=== PATIENT | male | born 1975 | race Caucasian/White ===

== ENCOUNTER 2016-06-24 05:58 | Inpatient (IN) | payer MEDICARE ==
[2016-06-24] VITALS (11 sets, daily range): BP systolic 132–180; BP diastolic 72–97; Ht 185.4 cm; Wt 215.9 kg
[~2016-06-24] VITALS: Ht 185.4 cm; Wt 215.9 kg
[~2016-06-24 05:58] MED LIST: BUPRENORPHIN-N1 EACH SL; COMBIVENT RESPIM4 GM INH; DILANTIN100 MG PO; DIOVAN HCT 160/1 TAB PO; EPIPEN0.3 MG/0.3 IM; LEVOTHYROXINE50 MCG PO; NAPROSYN500 MG PO; NEXIUM20 MG PO; PHENERGAN25 M1 PO; PROAIR HFA8.5 GM INH; PROBENECID-COL1 EACH PO; SEROQUEL300 MG PO; SYMBICORT 16010.2 GM INH; TESTOSTERON200 MG/ML IM; TRAZODONE HCL50 MG PO; VRAYLAR 3 MG PO; XANAX1 MG PO; ZANTAC300 MG PO; ZOLOFT100 MG PO
[2016-06-24 07:01] LABS: HEMATOCRIT 38.8 % (42.0-54.0); HEMOGLOBIN 12.9 g/dL (13.5-17.5); MCH 28.5 pg (26.0-34.0); MCHC 33.2 g/dL (31.0-37.0); MCV 85.8 fL (80.0-100.0); MEAN PLATELET VOLUME 10.7 fL (7.4-10.4); RBC 4.52 10x6/uL (4.20-6.10); RDW 12.9 % (11.5-14.5); WBC 5.5 10x3/uL (4.8-10.8)
[2016-06-24 07:16] LABS: ANION GAP 13.6 mmol/L (8-16); CALCIUM 9.5 mg/dL (8.5-10.1); CARBON DIOXIDE 29.6 mmol/L (21.0-32.0); CREATININE - SERUM 1.3 mg/dL (0.6-1.3); POTASSIUM - SERUM 4.2 mmol/L (3.5-5.1)
--- NOTE | 2016-06-24 11:13 | NUR ---
DR WHITE AT BEDSIDE ASSESING THE PATIENTS PAIN. PT TO BE DISCHARGED FROM .
--- NOTE | 2016-06-24 11:23 | NUR ---
DR DOHERTY NOW AT BEDSIDE. DR DOHERTY ADVISED OF BP AND ADMINISTERED KETAMINE. KETAMINE DOCUMENTED ON GREEN SHEET BY DR DOHERTY
--- NOTE | 2016-06-24 11:54 | NUR ---
PATIENT REQUESTING A FAN. CALLED [employer] AND ASKED FOR A FAN. THE LADY I SPOKE WITH SAID "I WILL SEE WHAT I CAN FIND."
--- NOTE | 2016-06-24 12:10 | NUR ---
PATIENT IS HAVING CHEST PAIN. STATED HE FEELS LIKE SOMEONE IS SITTING ON HIS CHEST. CALLED . PUT IN ORDERS. RT AMINA IS AT THE BEDSIDE NOW FOR EKG. PATIENT IS ALERT AND ORIENTED X'S 4. PATIENT IS ON 2L VIA NASAL CANNULA. PATIENT STATED HE IS FEELING SHORT OF BREATH. OXYGEN SATURATION IS 100%. RESPIRATIONS ARE EVEN AND UNLABORED. FAMILY IS IN ROOM.
--- NOTE | 2016-06-24 13:06 | NUR ---
PATIENT IS NOW CALM. STATED HIS PAIN IS STILL THERE BUT FEELING BETTER. PATIENT STATED HE OCCASIONALLY HAS SEIZURES. SET UP SUCTION AT THE BEDSIDE, AND PADDED BED RAILS.
[2016-06-24 13:55] LABS: CKMB 5.5 U/L (0.0-3.6); CREATINE KINASE 184 UL (21-232)
[2016-06-24 13:56] LABS: TROPONIN-I < 0.017 ng/mL (0.000-0.060)
[2016-06-24 19:27] LABS: CREATINE KINASE 217 UL (21-232); TROPONIN-I < 0.017 ng/mL (0.000-0.060)
--- NOTE | 2016-06-24 20:00 | NUR ---
ASESSMENT PER FLOWSHEET. MONITORING PO WATER INTAKE 30 ML Q30MIN. IV PATENT RT FOREARM OF LR INFUSING AT 150CC'S/HR SITE CLEAR. MANAGER CLINICAL APPLICATIONS OF DILAUDID IN USE WITH SETTINGS AT 1MG Q10MIN WITH 9MG Q4H L/O. ETCO2 MONITOR IN USE. UP WITH HELPTO BR VOIDED X1. LAP SITES TO ABDOMEN X7 WITH 4X4 DRESSING TO SITE ABOVE NAVEL AREA C/D/I. O2 ON 2L/M PER NC NO DISTRESS. SCD'S ON. SR UP X2 CALL LIGHT WITHIN REACH.
--- NOTE | 2016-06-24 21:15 | NUR ---
MEDS GIVEN PER JUL. WITH 30 ML WATER.
--- NOTE | 2016-06-24 21:23 | NUR ---
INSTRUCTED PT WILL NEED TO WALK IN THE HALLWAY THIS PM.
--- NOTE | 2016-06-24 22:59 | NUR ---
EYES CLOSED RESPIRATIONS WITH EASE AND UNLABORED.
--- NOTE | 2016-06-24 23:45 | NUR ---
AWAKE UP WITH HELP TO BR VOIDS. AMBULATED IN HALLWAY ONE LAP AROUND NURSES' STATION.
--- NOTE | 2016-06-25 01:24 | NUR ---
AWAKE UP WITH STANDBY ASSIST TO BR VOIDS ON COMMODE. AMBULATED IN HALLWAY X 200 FEET OR ONE LAP. TOLERATED WELL. ASSISTED BACK TO BED. SR UP X2 CALL LIGHT WITHIN REACH.
[2016-06-25 01:30] VITALS: BP 146/63
[2016-06-25 02:13] LABS: CKMB 1.6 U/L (0.0-3.6); CREATINE KINASE 189 UL (21-232)
[2016-06-25 02:31] LABS: TROPONIN-I < 0.017 ng/mL (0.000-0.060)
--- NOTE | 2016-06-25 04:18 | NUR ---
AWAKE UP TO BR VOIDS AMBULATED IN HALLWAY 3RD TIME TONIGHT. TOLERATED WELL.
[2016-06-25 05:00] VITALS: BP 152/65
--- NOTE | 2016-06-25 06:22 | NUR ---
UP TO BR VOIDS ASSISTED BACK TO BED MEDS GIVEN PER JUL.
[2016-06-25 07:12] LABS: BASOPHILS 0.3 % (0.0-2.0); EOSINOPHILS 0.3 % (0-7); HEMATOCRIT 36.8 % (42.0-54.0); HEMOGLOBIN 12.4 g/dL (13.5-17.5); IMMATURE GRANULOCYTES 0.4 % (0-5); LYMPHOCYTES 17.7 % (15-50); MCH 28.6 pg (26.0-34.0); MCHC 33.7 g/dL (31.0-37.0); MEAN PLATELET VOLUME 11.2 fL (7.4-10.4); MONOCYTES 12.4 % (2-11); NEUTROPHILS 68.9 % (40-80); PLATELET COUNT 233 10x3/uL (130-400); RBC 4.33 10x6/uL (4.20-6.10); RDW 13.3 % (11.5-14.5)
[2016-06-25 07:34] LABS: CALC OSMOLALITY 282 mosm/kg (275-300); CALCIUM 8.5 mg/dL (8.5-10.1); CARBON DIOXIDE 26.1 mmol/L (21.0-32.0); CHLORIDE - SERUM 103 mmol/L (98-107); CREATININE - SERUM 1.1 mg/dL (0.6-1.3); GLUCOSE 117 mg/dL (74-106); MAGNESIUM - SERUM 1.7 mg/dL (1.8-2.4); POTASSIUM - SERUM 4.4 mmol/L (3.5-5.1); SODIUM 140 mmol/L (136-145); UREA NITROGEN 20 mg/dL (7-18); eGFR NON AFRICAN AMERICAN 79 mL/min (90-120)
[2016-06-25 07:57] VITALS: BP 148/79
--- NOTE | 2016-06-25 08:23 | OP ---
PATIENT NAME: PORTER NAVA JR MEDICAL RECORD: [id number] :79 LOCATION:D.[facility] ADMISSION DATE:06/24/16 SURGEON: HAIR LIVE MD DATE OF OPERATION: 06/24/2016 SURGEON: Hair Live MD. PREOPERATIVE DIAGNOSES: 1. Morbid obesity. 2. Chronic obstructive pulmonary disease. 3. Obstructive sleep apnea. 4. Hypertension. 5. Epilepsy. POSTOPERATIVE DIAGNOSES: 1. Morbid obesity. 2. Chronic obstructive pulmonary disease. 3. Obstructive sleep apnea. 4. Hypertension. 5. Epilepsy. PROCEDURE PERFORMED: Laparoscopic vertical sleeve gastrectomy. ANESTHESIA: General. COMPLICATIONS: None. SPECIMENS: Partial gastrectomy. Case was clean contaminated. ESTIMATED BLOOD LOSS: 30 cc. OPERATIVE COURSE: After consent was obtained, the patient was taken to the operating room and placed in the supine position on the operating table. Next, general anesthesia was given via endotracheal intubation after a timeout was performed that confirmed the correct patient and procedure. Next, the abdomen was prepped and draped in typical sterile fashion. Local anesthetic was injected just above the umbilicus. A stab incision was made with 11-blade scalpel. Using a 10-mm bladeless optical trocar, the abdomen was entered under direct laparoscopic vision. Adequate pneumoperitoneum was achieved. The abdominal cavity was inspected. No evidence of bowel injury. No evidence of bleeding. The patient was then placed in a steep reverse Trendelenburg position. All trocar sites were infiltrated with local anesthetic. A Kike retractor was placed in the subxiphoid position elevating the left lobe of the liver and exposing the gastroesophageal junction. A 12-mm trocar was then placed into the right lateral quadrant. A 5-mm trocar was placed in the right lower quadrant. Two 5-mm trocars were placed in the left lateral quadrant. At this time, the pylorus was identified. Starting approximately 6 cm from the pylorus, the short gastric vessels were taken along the length of the greater curvature all the way to the level of the left crura with the Harmonic scalpel. Once this was done, the stomach was mobilized. The left crura was skeletonized. Next, the 40-Welsh ViSiGi device was passed transorally into the stomach. It was advanced to the pylorus, placed along the lesser curvature of the stomach and placed to suction. Next, the sleeve gastrectomy was created using the OPERATIVE REPORT [id number] BRANDYNICOTIN REYEZ JR Ethicon powered linear cutting stapler with curiel loads. The loads were fired along the length of the ViSiGi device. A total of 6 firings were used to create the sleeve gastrectomy. The partial gastrectomy specimen was then placed in the left pericolic gutter. The suture line was imbricated using a 2-0 Stratafix suture. Once the suture line was oversewn, the ViSiGi device was pulled back into the antrum. A bowel clamp was placed across the duodenum. The upper abdomen was filled with saline. The ViSiGi device was used to insufflate the stomach. A leak test was performed. There was no evidence of leak. At this time, the stomach was suctioned and the ViSiGi device was removed from the stomach. All remaining irrigant was suctioned from the abdomen. The abdominal cavity was inspected. There was no evidence of bowel injury. No evidence of bleeding. Next, the partial gastrectomy specimen was grasped and removed through the 12-mm trocar site and sent for permanent pathology. Next, the Kike liver retractor was removed. Next, the 5 mm scope was inserted. The 10-mm trocar site and 12-mm trocar site were closed in direct laparoscopic vision with 0 Vicryl suture and a Aristides-Gloria suture passer. At this time, all remaining instruments were removed. The abdomen was desufflated. Trocars were removed. Skin was closed with 4-0 Monocryl, Mastisol and Steri-Strips. At the end of the case, all needle and instrument counts were correct. No complications occurred. The patient extubated and transferred to the PACU in stable condition. TRANSINT:[id number] Voice Confirmation ID: [id number] DOCUMENT ID: [id number] HAIR LIVE MD at 0823 CC: [id number] DICTATION DATE: 06/24/161029 LOG TRUCK DRIVER: 06/24/16 1825 ADM IN [id number] [place] [address]
--- NOTE | 2016-06-25 08:30 | NUR ---
VS NEW ORDERS R/N AT PRESENT.
--- NOTE | 2016-06-25 09:00 | NUR ---
MEDS GIVEN VICENTE WELL AT PRESENT N/C.
--- NOTE | 2016-06-25 10:00 | NUR ---
QUIET IN ROOM AT PRESENT AT PRESENT.
--- NOTE | 2016-06-25 11:28 | NUR ---
Patient Name: PORTER NAVA Admission Status: Elective Accout number: [id number] Admission Date: 06-24-2016 : 1975 Admission Diagnosis: Attending: MORIS Current LOS: 1 Anticipated DC Date: 06-29-2016 Planned Disposition: Home Primary Insurance: MEDICARE A & B Discharge Planning Comments: CM MET WITH PATIENT WITH D/C NEEDS AND PLANS. PATIENT STATED HE LIVES ALONE AND HAS 3 STEPS W/O RAILS TO ENTER HOME AND NO STAIRS INSIDE. PATIENT STATED HE IS INDEPENDENT WITH HIS CARE AND HAS NO DME AT HOME. PATIENTS PCP IS DR. BATEMAN AND HE USES [facility] IS [place]. PATIENT DENIES NEED FOR HOME HEALTH AT THIS TIME. CM WILL CONTINUE TO FOLLOW PATIENT WITH D/C NEEDS AND PLANS. PCP DR. BATEMAN [facility] ([place]) EDGAR LEIJA) [phone] Delivery Architect: Wanda Pérez Is the patient Alert and Oriented? Yes 0 * How many steps to enter\exit or inside your home? 3 W/O RAIL 0 * PCP FRANSICO 0 * Pharmacy [facility] IN [place] 0 * Preadmission Environment Home Alone 0 * ADLs Independent 0 * Equipment None 0 * List name and contact numbers for known caregivers / representatives who currently or will assist patient after discharge: EDGAR LEIJA) [phone] 0 * Community resources currently utilized None 0 * Additional services required to return to the preadmission environment? Yes 0 * Can the patient safely return to the preadmission environment? Yes 0 * Has this patient been hospitalized within the prior 30 days at any hospital? No 0 Grand Total: 0
--- NOTE | 2016-06-25 11:30 | NUR ---
AMB TO BATHROOM BM NOTED QUIET N/C VOICED.
--- NOTE | 2016-06-25 12:14 | NUR ---
NUTRITION MONITORING & EVAL SPOKE WITH PT RE: DIET INSTRUCTIONS FOR GASTRIC SLEEVE. REVIEWED DIET PROGRESSION AND PORTIONS. RD FOLLOWING
[2016-06-25 12:35] VITALS: BP 168/82
--- NOTE | 2016-06-25 12:37 | NUR ---
QUIET IN ROOM AT PRESENT DENIES ANY NEEDS CONT TO C/O PAIN AT PRESENT.
--- NOTE | 2016-06-25 14:20 | NUR ---
QUIET IN ROOM AT PRESENT DENIES ANY NEEDS AT PRESENT.
[2016-06-25] MEDS ORDERED: DILAUDID2 MG PO (14:45)
[2016-06-25 15:31] VITALS: BP 175/88
--- NOTE | 2016-06-25 15:57 | NUR ---
IV DCD CATH INTACT SITE CLEAN AND DRY WITHOUT REDDNESS OR EDEMA NOTED AT PRESENT.DISCHARGE INSTRUCTIONS GONE OVER WITH PT DEMONSTRATES UNDERSTANDING AT PRESENT.RX GIVEN TO PT ALSO AT PRESENT.
--- NOTE | 2016-06-25 16:20 | NUR ---
LEFT VIA W/C DISCHARGE INSTRUCTIONS GONE OVER WITH PT LEFT VIA W/C AT PRESENT.
--- NOTE | 2016-08-07 09:40 | OP ---
PATIENT NAME: PORTER NAVA JR MEDICAL RECORD: [id number] :[birth year] LOCATION:D.MS [facility]2224 ADMISSION DATE:06/24/16 SURGEON: ISIDRO GARBER MD DATE OF OPERATION: 06/24/2016 ASSISTANCE NOTE: I assisted Dr. Roberts with laparoscopic gastric sleeve resection for morbid obesity. I scrubbed in as the trocars and retractor had been placed. My involvement in the operation including manipulation of tissues. Retraction of tissues. Assistance with positioning of the linear cutting stapler. Irrigation and aspiration. Assistance with oversewing the suture line. Assistance with retrieval of the gastrectomy specimen as well as closure of a few of the skin incisions and running the camera for most of the case. TRANSINT:[id number] Voice Confirmation ID: [id number] DOCUMENT ID: [id number] ISIDRO GARBER MD at 0940 CC: [id number] DICTATION DATE: 06/24/16 1610 SUPERVISOR CARTON AND [employer] SUPPLY: 06/24/162002 DIS IN 06/25/16 [facility] [address] [place] [address]
== END 2016-06-25 16:22 | disposition home or self-care (01) | DRG 982 ==
LOC: D.SDCHOLD 05:58 → D.MS 05:58 → D.SDCHOLD 08:00 → D.MS 11:43
PROVIDERS: Anesthesiology; ADMIT Surgery
PROC: 0DB64Z3 Excision of Stomach, Percutaneous Endoscopic Approach, Vertical (ICD-10-PCS; principal; 2016-06-24 08:00)
DX: E66.2 Morbid (severe) obesity with alveolar hypoventilation (principal); Z68.44 Body mass index [BMI] 60.0-69.9, adult; J44.9 Chronic obstructive pulmonary disease, unspecified; I10 Essential (primary) hypertension; G40.909 Epilepsy, unspecified, not intractable, without status epilepticus

== ENCOUNTER → 2017-06-28 09:50 | Outpatient (CLI) | payer MEDICARE ==
[2016-06-24 15:33] VITALS: BMI 62.8
[~2017-06-28 09:50] MED LIST changes: +DILAUDID2 MG PO
== END | disposition home or self-care (01) ==
LOC: D.RAD 06-18 08:30
DX: E66.01 Morbid (severe) obesity due to excess calories (principal)

== ENCOUNTER 2017-11-01 19:32 | Inpatient (IN) | payer MEDICARE ==
[~2017-11-01] VITALS: Ht 185.4 cm; Wt 211.5 kg
--- NOTE | ~2017-11-01 | HP ---
PATIENT: PORTER NAVA JR MEDICAL RECORD: [id number] ACCOUNT: [id number] LOCATION:[facility] D.2301 : [birth year] ADMISSION DATE: 11/01/17 HISTORY AND PHYSICAL EXAMINATION HISTORY OF PRESENT ILLNESS: This 42-year-old white male was admitted to the hospital ICU for evaluation of difficult pneumonia and sepsis. The patient was seen in an outlying facility, transferred to the ER. ER evaluated the patient and admitted him for appropriate intervention. The patient went to the local emergency room for evaluation of cough and congestion that had been present for almost 2 weeks. He had been having shortness of breath and sweating for the last 24 hours. He was evaluated and found to have evidence of a left mid and left lower chest density, had extremely elevated white count. Antibiotics were initiated, and the patient was transferred for pulmonary evaluation. PAST MEDICAL HISTORY: Significant for morbid obesity, seizures, hypertension, coronary artery disease, asthma, sleep apnea, history of a GI bleed, constipation, depression, anxiety, PTSD. PAST SURGICAL HISTORY: Includes bilateral knee arthroscopic surgery. He also had an appendectomy. He also had a gastric sleeve that was performed. ALLERGIES: The patient has no known drug allergies. MEDICATIONS: Do include Suboxone for chronic pain, Xanax for PTSD, Nexium for GERD, Dilantin for seizures, Zoloft for depression, Seroquel for depression, and Symbicort for asthma. SOCIAL HISTORY: The patient is a former smoker. He is not smoking now. No alcohol use. No recreational drug use. REVIEW OF SYSTEMS: Indicates fever, chills, back pain, no hematuria, night sweats, generalized achiness, and wheezing. PHYSICAL EXAMINATION: VITAL SIGNS: At the time of history and physical as below. GENERAL: He is an ill-appearing, morbidly obese 42-year-old white male that is in the ICU, diaphoretic, that has a harsh cough. HEENT: His pupils are equal, round and reactive to light. Extraocular movements are intact. Oral cavity and oropharynx otherwise clear. NECK: No cervical or pharyngeal adenopathy. No nuchal rigidity. LUNGS: Have rhonchi heard in the left side with expiratory wheezes. HEART: Regular rate and rhythm with a I/ systolic ejection murmur. ABDOMEN: Soft, nontender, obese. Positive bowel sounds. No hepatosplenomegaly or masses. EXTREMITIES: No edema is noted. NEUROLOGIC: He is able to move all 4 extremities. LABORATORY DATA: On visualization of his lab from outlying source shows a white count of 35,000, H&H of 15 and 47, platelets of 136. He does have an elevated lactate. The patient's potassium is mildly elevated at 5, but at the high end of normal. CO2 of 20. Chest x-ray shows left lower lobe and left middle lobe pneumonia. The patient has been afebrile in the last 24 hours. Has slightly elevated troponin. HISTORY AND PHYSICAL [id number] PORTER NAVA JR PLAN: The patient will be started on Merrem and Levaquin. Pulmonary consultation will be obtained with Dr. Jean. We will check x-ray and laboratory appropriately. TRANSINT:[id number] Voice Confirmation ID: [id number] DOCUMENT ID: [id number] JACQUES STOLL MD at 0949 CC: [id number] DICTATION DATE: 11/02/17 112 HEALTH IT SPECIALIST: 11/02/17 1309 ADM IN [facility] [address] [place] [address]
--- NOTE | ~2017-11-01 | CN ---
PATIENT NAME:PORTER NAVA JR MEDICAL RECORD: [id number] : 79 LOCATION:[id number] ADMIT DATE: 11/01/17 ACCOUNT: [id number] CONSULTING PHYSICIAN: RICHARD ALMENDAREZ MD REFERRING PHYSICIAN: KRISTINE CAREY MD DATE OF CONSULTATION: 11/02/2017 CONSULT REQUESTING PHYSICIAN: Prabhu Washburn MD REASON FOR CONSULTATION: Left-sided chest pain, possible pneumonia, possible hemothorax. HISTORY OF PRESENT ILLNESS: Mr. Nava is a 42-year-old gentleman, who is morbidly obese. The patient having a fall on the left side 2 weeks ago and he is hurting on the left side when he is taking a deep breathing, but there were no significant shortness of breath. Since yesterday, the patient has worsening shortness of breath. He is also having some chills. The patient came into the ER and evaluation found out that he has a huge infiltrate on the left lower lobe and lingular region. He denies any swelling and pain in the lower extremities. REVIEW OF SYSTEMS: Mainly in the history of present illness. PAST MEDICAL HISTORY: 1. Morbid obesity. 2. Obstructive sleep apnea. 3. Seizure disorder. 4. Hypertension. 5. Coronary artery disease. 6. Anxiety and depression. 7. PTSD. PAST SURGICAL HISTORY: 1. He had bilateral arthroscopic knee surgery. 2. He had a bariatric surgery. 3. Appendectomy. ALLERGIES: There are no known drug allergies. MEDICATIONS: On Crosswisetech is reviewed. PERSONAL AND SOCIAL HISTORY: The patient is an ex-smoker. He quit it more than 1-1/2 years ago. He smoked for 20 years. He is nondrinker. FAMILY HISTORY: Noncontributory. PHYSICAL EXAMINATION: GENERAL: Now, the patient is lying comfortably in bed. He is not in acute distress. VITAL SIGNS: The blood pressure is 139/79, pulse is 70, respirations 14, temperature 98.6, SpO2 is 97% on 2 liters nasal cannula. HEENT: Conjunctivae are pink. Sclerae are not icteric. NECK: Supple, no JVD. CHEST: There is absent breath sounds on the left. There is dullness on percussion. The right side is clear. HEART: Rhythm regular, normal sound, no murmur. CONSULT REPORT [id number] PORTER NAVA ABDOMEN: Soft, bowel sounds present. No hepatosplenomegaly. RECTAL: Deferred. EXTREMITIES: No cyanosis, no clubbing, no pedal edema. SKIN: Warm, normal turgor. CENTRAL NERVOUS SYSTEM: The patient is awake and alert. There are no obvious cranial nerve abnormality. The gait was not tested. LABORATORY DATA: CBC: The WBC is 28.7, hemoglobin 13.5, hematocrit 40.2, the platelet count is 667. Chemistry: Sodium 131, potassium is 5, BUN is 22, creatinine 1.3. IMPRESSION: 1. Acute hypoxic respiratory failure. 2. Large right-sided pleural effusion. 3. Possible multilobar pneumonia. 4. Left-sided pleuritic type of chest pain after a fall. 5. Leukocytosis. 6. Obstructive sleep apnea. 7. Morbid obesity. RECOMMENDATION: 1. Continue meropenem and Levaquin. I will add vancomycin to cover for MRSA. 2. Check the CT scan with contrast after discussion with the radiologist. 3. Consult Dr. Clifton. 4. Follow up labs and chest radiograph. Dr. Washburn, thank you for involving me in the care of Mr. Nava. CRITICAL CARE TIME: 45 minutes. TRANSINT:[id number] Voice Confirmation ID: [id number] DOCUMENT ID: [id number] RICHARD ALMENDAREZ MD at 1218 CC: [id number] DICTATION DATE: 11/02/17 1435 SODA MAKER: 11/02/17 1506 ADM IN [address] [place] [address]
--- NOTE | ~2017-11-01 | OP ---
PATIENT NAME: PORTER NAVA JR MEDICAL RECORD: [id number] :79 LOCATION:D.[facility] D.2305 ADMISSION DATE:11/01/17 SURGEON: MARCELINO MOREAU MD DATE OF OPERATION: 11/05/2017 SURGEON: Marcelino Moreau MD MILL ATTENDANT: KENZIE Horton OPERATION PERFORMED: 1. Left video-assisted thoracoscopic surgery. 2. Left thoracotomy. 3. Total decortication. 4. Bronchoscopy. PREOPERATIVE DIAGNOSIS: Empyema. POSTOPERATIVE DIAGNOSES: Empyema and abscess. ANESTHESIA: General endotracheal anesthesia, aborted Epidural. COMPLICATIONS: None. SPECIMENS: 1. Pleural fluid for culture, AFB, fungal and cytology. 2. Pleural peel. 3. Abscess cavity. 4. Culture of abscess fluid. BLOOD LOSS: 50 cc. CONDITION: Stable. DISPOSITION: ICU. OPERATIVE FINDINGS: 1. Thoracoscopy in the mid axillary line. After removal of 1700 cc of seropurulent fluid revealed a well walled off space, but unable to free the lung enough to make an anterior working port, converted to open thoracotomy at this site. 2. Dense pleuritic adhesions over the lower lobe and lingula. 3. Creamy white pus in the pleural space posterior to the superior segment of the lower lobe. 4. Good reexpansion. 5. Bronchoscopy with no endobronchial lesions and a small amount of blood in the right main stem bronchus and upper lobe that appeared to have rundown from above. OPERATIVE INDICATION: Pleuritic pain, leukocytosis, and empyema. DESCRIPTION OF PROCEDURE: The patient was brought to the operating suite and after some difficulty, double lumen endotracheal tube placed with good position confirmed by bronchoscopy, then turned to the right lateral decubitus position with appropriate padding including an axillary roll. The chest was sterilely prepped and draped. The scope was inserted through a small opening with OPERATIVE REPORT [id number] PORTER NAVA JR findings as above converted to thoracotomy. The lower lobe was completely freed. Lingula was freed all the way to the apex with direct visualization. All of the visceral pleura was freed. Parietal pleura was then freed. Cultures were taken as above. Chest tubes were placed, one posteriorly and one directed to the apex. Thorough irrigation was undertaken. The lung was reexpanded. The wound was closed with muscle layer, subcutaneous layers and skin clips. The patient was placed in a supine position. Tube changed. Bronchoscopy performed. Thorough irrigation. Then to ICU in stable condition. TRANSINT:[id number] Voice Confirmation ID: [id number] DOCUMENT ID: [id number] MARCELINO MOREAU MD at 1005 CC: RICHARD ALMENDAREZ MD and KRISTINE CAREY MD [id number] DICTATION DATE: 11/05/17 1230 HEARING SCREEN COORDINATOR: 11/05/17 1306 ADM IN [id number] [place] [address]
[2017-11-01] MEDS ORDERED: BUPRENORPHIN-N1 EACH SL (19:38)
[2017-11-01] MEDS ORDERED: NEXIUM20 MG PO (21:54)
[2017-11-01 22:00] VITALS: BP 131/73; BP 140/79
[2017-11-01] MEDS ORDERED: FISH OIL 1,0001 CA1 PO (22:01)
[2017-11-01 22:07] LABS: CKMB 0.7 U/L (0.0-3.6); CREATINE KINASE 79 UL (21-232)
[2017-11-01 22:08] LABS: TROPONIN-I < 0.017 ng/mL (0.000-0.060)
[2017-11-01 22:59] VITALS: BP 140/79; BMI 56.6
[2017-11-01 23:00] VITALS: BP 151/75
[2017-11-02] VITALS (22 sets, daily range): BP systolic 128–168; BP diastolic 72–100; Ht 185.4 cm; Wt 211.5 kg
[2017-11-02 02:30] LABS: APPEARANCE HAZY (CLEAR); COLOR AMBER (YELLOW)
[2017-11-02 02:31] LABS: BILIRUBIN NEGATIVE (NEGATIVE); GLUCOSE NEGATIVE (NEGATIVE); KETONE NEGATIVE (NEGATIVE); NITRITE NEGATIVE (NEGATIVE); PROTEIN 1+ mg/dL (NEGATIVE)
[2017-11-02 02:32] LABS: BACTERIA MODERATE /hpf (NONE SEEN); EPITHELIAL CELLS 0-5 /hpf (0-5); GRANULAR CAST 0-5 /lpf (NONE SEEN); MUCUS <1+ /lpf (NONE SEEN); RED CELLS - URINE 0-5 /hpf (0-5); WHITE CELLS - URINE 0-5 /hpf (0-5)
[2017-11-02 03:57] LABS: BASOPHILS 0.1 % (0-2); EOSINOPHILS 0.1 % (0-7); HEMATOCRIT 40.2 % (42.0-54.0); HEMOGLOBIN 13.5 g/dL (13.5-17.5); IMMATURE GRANULOCYTES 0.6 % (0-5); LYMPHOCYTES 7.7 % (15-50); MCHC 33.6 g/dL (31.0-37.0); MCV 83.4 fL (80.0-100.0); MEAN PLATELET VOLUME 10.9 fL (7.4-10.4); MONOCYTES 12.7 % (2-11); NEUTROPHILS 78.8 % (40-80); PLATELET COUNT 667 10x3/uL (130-400); RBC 4.82 10x6/uL (4.20-6.10); RDW 12.8 % (11.5-14.5); WBC 28.7 10x3/uL (4.8-10.8)
[2017-11-02 04:01] LABS: ALBUMIN 2.6 g/dL (3.4-5.0); ANION GAP 17.4 mmol/L (8-16); BILIRUBIN - TOTAL 1.22 mg/dL (0.2-1.3); CALCIUM 9.1 mg/dL (8.5-10.1); CARBON DIOXIDE 22.6 mmol/L (21.0-32.0); CREATININE - SERUM 1.3 mg/dL (0.6-1.3); PROTEIN - SERUM 6.8 g/dL (6.4-8.2)
[2017-11-02] MEDS ORDERED: CLONAZEPAM2 MG/TAB PO ×2 (23:17→23:18)
[2017-11-03] VITALS (16 sets, daily range): BP systolic 111–169; BP diastolic 68–123
[2017-11-03 06:18] LABS: HEMATOCRIT 34.6 % (42.0-54.0); HEMOGLOBIN 11.4 g/dL (13.5-17.5); MCH 28.1 pg (26.0-34.0); MCHC 32.9 g/dL (31.0-37.0); MCV 85.2 fL (80.0-100.0); MEAN PLATELET VOLUME 10.8 fL (7.4-10.4); PLATELET COUNT 455 10x3/uL (130-400); RBC 4.06 10x6/uL (4.20-6.10); WBC 20.2 10x3/uL (4.8-10.8)
[2017-11-03 06:24] LABS: INR 1.57 (0.85-1.17); PROTIME 18.2 SECONDS (11.6-15.0)
[2017-11-03 06:41] LABS: ALBUMIN 2.2 g/dL (3.4-5.0); ALKALINE PHOSPHATASE 105 U/L (46-116); BILIRUBIN - TOTAL 0.73 mg/dL (0.2-1.3); CALC OSMOLALITY 265 mosm/kg (275-300); CALCIUM 9.1 mg/dL (8.5-10.1); CARBON DIOXIDE 24.1 mmol/L (21.0-32.0); CHLORIDE - SERUM 95 mmol/L (98-107); CKMB 1.2 U/L (0.0-3.6); CREATINE KINASE 112 UL (21-232); CREATININE - SERUM 1.1 mg/dL (0.6-1.3); GLUCOSE 122 mg/dL (74-106); MAGNESIUM - SERUM 1.9 mg/dL (1.8-2.4); PHOSPHOROUS 2.7 mg/dL (2.5-4.9); PRO BNP 267 pg/mL (0-125); PROTEIN - SERUM 7.3 g/dL (6.4-8.2); SODIUM 131 mmol/L (136-145); THYROID STIMULATING HORMONE 3.41 uIU/mL (0.36-3.74); UREA NITROGEN 17 mg/dL (7-18); eGFR NON AFRICAN AMERICAN 79 mL/min (90-120)
[2017-11-03 06:42] LABS: ALT (SGPT) 16 U/L (10-68); POTASSIUM - SERUM 4.1 mmol/L (3.5-5.1); TROPONIN-I < 0.017 ng/mL (0.000-0.060)
[2017-11-03 08:23] LABS: ANISOCYTOSIS OCC; LYMPHOCYTES 19 % (15-50); MONOCYTES 9 % (2-11); NEUTROPHILS 65 % (40-80); PLATELET ESTIMATE INCREASED
[2017-11-03 15:03] LABS: APPEARANCE CLEAR (CLEAR); COLOR YELLOW (YELLOW)
[2017-11-03 15:04] LABS: BILIRUBIN NEGATIVE (NEGATIVE); GLUCOSE NEGATIVE (NEGATIVE); KETONE MODERATE mg/dL (NEGATIVE); NITRITE NEGATIVE (NEGATIVE); PROTEIN NEGATIVE (NEGATIVE); UROBILINOGEN NORMAL (NORMAL)
[2017-11-04] VITALS (18 sets, daily range): BP systolic 113–184; BP diastolic 62–106
[2017-11-04 04:44] LABS: MCH 27.6 pg (26.0-34.0); MCHC 32.7 g/dL (31.0-37.0); MCV 84.5 fL (80.0-100.0); MEAN PLATELET VOLUME 10.6 fL (7.4-10.4); WBC 15.6 10x3/uL (4.8-10.8)
[2017-11-04 04:57] LABS: HEMATOCRIT 27.2 % (42.0-54.0); HEMOGLOBIN 8.9 g/dL (13.5-17.5); RBC 3.22 10x6/uL (4.20-6.10)
[2017-11-04 05:02] LABS: INR 1.63 (0.85-1.17); PROTIME 18.8 SECONDS (11.6-15.0)
[2017-11-04 05:03] LABS: APTT 56.6 SECONDS (22.8-39.4)
[2017-11-04 05:04] LABS: ALBUMIN 1.9 g/dL (3.4-5.0); ALKALINE PHOSPHATASE 92 U/L (46-116); ALT (SGPT) 15 U/L (10-68); BILIRUBIN - TOTAL 1.29 mg/dL (0.2-1.3); CALCIUM 7.5 mg/dL (8.5-10.1); CARBON DIOXIDE 22.3 mmol/L (21.0-32.0); CHLORIDE - SERUM 102 mmol/L (98-107); GLUCOSE 101 mg/dL (74-106); PROTEIN - SERUM 6.1 g/dL (6.4-8.2); SODIUM 137 mmol/L (136-145); eGFR NON AFRICAN AMERICAN 88 mL/min (90-120)
[2017-11-04 05:07] LABS: CALC OSMOLALITY 272 mosm/kg (275-300); POTASSIUM - SERUM 3.3 mmol/L (3.5-5.1); UREA NITROGEN 9 mg/dL (7-18)
[2017-11-04 14:27] LABS: PROTIME 15.6 SECONDS (11.6-15.0)
[2017-11-04 14:34] LABS: APTT 43.3 SECONDS (22.8-39.4); INR 1.29 (0.85-1.17)
[2017-11-04 21:09] LABS: INR 1.28 (0.85-1.17); PROTIME 15.5 SECONDS (11.6-15.0)
[2017-11-04 21:10] LABS: APTT 47.1 SECONDS (22.8-39.4)
[2017-11-05] VITALS (23 sets, daily range): BP systolic 125–172; BP diastolic 64–97
[2017-11-05 04:02] LABS: BASOPHILS 0.2 % (0-2); HEMATOCRIT 31.5 % (42.0-54.0); HEMOGLOBIN 10.2 g/dL (13.5-17.5); IMMATURE GRANULOCYTES 1.2 % (0-5); LYMPHOCYTES 8.9 % (15-50); MCH 27.6 pg (26.0-34.0); MCHC 32.4 g/dL (31.0-37.0); MCV 85.4 fL (80.0-100.0); MEAN PLATELET VOLUME 10.8 fL (7.4-10.4); MONOCYTES 13.1 % (2-11); NEUTROPHILS 75.6 % (40-80); PLATELET COUNT 431 10x3/uL (130-400); RBC 3.69 10x6/uL (4.20-6.10); RDW 13.3 % (11.5-14.5); WBC 17.5 10x3/uL (4.8-10.8)
[2017-11-05 04:24] LABS: ALBUMIN 2.2 g/dL (3.4-5.0); ALKALINE PHOSPHATASE 145 U/L (46-116); BILIRUBIN - TOTAL 1.38 mg/dL (0.2-1.3); CALC OSMOLALITY 270 mosm/kg (275-300); CARBON DIOXIDE 24.7 mmol/L (21.0-32.0); CHLORIDE - SERUM 97 mmol/L (98-107); CREATININE - SERUM 0.9 mg/dL (0.6-1.3); GLUCOSE 115 mg/dL (74-106); INR 1.32 (0.85-1.17); POTASSIUM - SERUM 3.5 mmol/L (3.5-5.1); PROTEIN - SERUM 7.1 g/dL (6.4-8.2); PROTIME 15.9 SECONDS (11.6-15.0); SODIUM 136 mmol/L (136-145); UREA NITROGEN 8 mg/dL (7-18); eGFR NON AFRICAN AMERICAN > 90 mL/min (90-120)
[2017-11-05 04:30] LABS: ALT (SGPT) 30 U/L (10-68)
[2017-11-05 12:45] LABS: INR 1.42 (0.85-1.17); PROTIME 16.9 SECONDS (11.6-15.0)
[2017-11-05 12:50] LABS: CALC OSMOLALITY 276 mosm/kg (275-300); CALCIUM 8.6 mg/dL (8.5-10.1); CARBON DIOXIDE 28.1 mmol/L (21.0-32.0); CHLORIDE - SERUM 99 mmol/L (98-107); GLUCOSE 130 mg/dL (74-106); POTASSIUM - SERUM 3.8 mmol/L (3.5-5.1); SODIUM 138 mmol/L (136-145); eGFR NON AFRICAN AMERICAN 88 mL/min (90-120)
[2017-11-05 12:51] LABS: BASOPHILS 0.3 % (0-2); EOSINOPHILS 0.4 % (0-7); HEMATOCRIT 34.1 % (42.0-54.0); HEMOGLOBIN 11.1 g/dL (13.5-17.5); IMMATURE GRANULOCYTES 3.2 % (0-5); LYMPHOCYTES 7.6 % (15-50); MCH 27.5 pg (26.0-34.0); MCHC 32.6 g/dL (31.0-37.0); MCV 84.6 fL (80.0-100.0); MEAN PLATELET VOLUME 10.3 fL (7.4-10.4); NEUTROPHILS 77.5 % (40-80); PLATELET COUNT 546 10x3/uL (130-400); RBC 4.03 10x6/uL (4.20-6.10); RDW 13.3 % (11.5-14.5); WBC 21.6 10x3/uL (4.8-10.8)
[2017-11-05 12:55] LABS: UREA NITROGEN 11 mg/dL (7-18)
[2017-11-06] VITALS (23 sets, daily range): BP systolic 110–169; BP diastolic 65–99
[2017-11-06 04:52] LABS: HEMATOCRIT 33.2 % (42.0-54.0); HEMOGLOBIN 10.9 g/dL (13.5-17.5); MCH 27.5 pg (26.0-34.0); MCHC 32.8 g/dL (31.0-37.0); MCV 83.8 fL (80.0-100.0); MEAN PLATELET VOLUME 10.3 fL (7.4-10.4); RBC 3.96 10x6/uL (4.20-6.10); RDW 13.3 % (11.5-14.5); WBC 17.8 10x3/uL (4.8-10.8)
[2017-11-06 04:58] LABS: INR 1.42 (0.85-1.17); PROTIME 16.9 SECONDS (11.6-15.0)
[2017-11-06 05:15] LABS: ALBUMIN 1.8 g/dL (3.4-5.0); ALKALINE PHOSPHATASE 165 U/L (46-116); BILIRUBIN - TOTAL 0.89 mg/dL (0.2-1.3); CALCIUM 8.5 mg/dL (8.5-10.1); CARBON DIOXIDE 31.6 mmol/L (21.0-32.0); CHLORIDE - SERUM 98 mmol/L (98-107); CREATININE - SERUM 0.8 mg/dL (0.6-1.3); GLUCOSE 129 mg/dL (74-106); POTASSIUM - SERUM 3.3 mmol/L (3.5-5.1); PROTEIN - SERUM 6.3 g/dL (6.4-8.2); SODIUM 137 mmol/L (136-145); eGFR NON AFRICAN AMERICAN > 90 mL/min (90-120)
[2017-11-06 05:24] LABS: ALT (SGPT) 62 U/L (10-68); CALC OSMOLALITY 273 mosm/kg (275-300); UREA NITROGEN 8 mg/dL (7-18)
[2017-11-06 19:08] LABS: AFB SPECIMEN PROCESSING Concentration (())
[2017-11-07] VITALS (23 sets, daily range): BP systolic 135–168; BP diastolic 78–99
[2017-11-07 05:16] LABS: HEMATOCRIT 32.4 % (42.0-54.0); HEMOGLOBIN 10.7 g/dL (13.5-17.5); MCH 27.9 pg (26.0-34.0); MCV 84.6 fL (80.0-100.0); RBC 3.83 10x6/uL (4.20-6.10); RDW 13.5 % (11.5-14.5); WBC 16.9 10x3/uL (4.8-10.8)
[2017-11-07 05:32] LABS: ALBUMIN 1.7 g/dL (3.4-5.0); ALKALINE PHOSPHATASE 152 U/L (46-116); ALT (SGPT) 60 U/L (10-68); BILIRUBIN - TOTAL 0.54 mg/dL (0.2-1.3); CALCIUM 8.2 mg/dL (8.5-10.1); CARBON DIOXIDE 31.2 mmol/L (21.0-32.0); CHLORIDE - SERUM 97 mmol/L (98-107); CREATININE - SERUM 0.9 mg/dL (0.6-1.3); POTASSIUM - SERUM 3.3 mmol/L (3.5-5.1); PROTEIN - SERUM 6.1 g/dL (6.4-8.2); SODIUM 134 mmol/L (136-145); UREA NITROGEN 8 mg/dL (7-18); eGFR NON AFRICAN AMERICAN > 90 mL/min (90-120)
[2017-11-07 05:48] LABS: CALC OSMOLALITY 270 mosm/kg (275-300); GLUCOSE 190 mg/dL (74-106)
[2017-11-08] VITALS (24 sets, daily range): BP systolic 127–172; BP diastolic 74–100
[2017-11-08 04:03] LABS: HEMATOCRIT 31.1 % (42.0-54.0); MCH 27.5 pg (26.0-34.0); MCHC 32.2 g/dL (31.0-37.0); MCV 85.4 fL (80.0-100.0); MEAN PLATELET VOLUME 9.8 fL (7.4-10.4); RBC 3.64 10x6/uL (4.20-6.10); RDW 13.6 % (11.5-14.5); WBC 16.9 10x3/uL (4.8-10.8)
[2017-11-08 04:21] LABS: ALBUMIN 1.7 g/dL (3.4-5.0); ALKALINE PHOSPHATASE 160 U/L (46-116); BILIRUBIN - TOTAL 0.37 mg/dL (0.2-1.3); CALCIUM 8.4 mg/dL (8.5-10.1); CARBON DIOXIDE 31.7 mmol/L (21.0-32.0); CHLORIDE - SERUM 98 mmol/L (98-107); CREATININE - SERUM 0.8 mg/dL (0.6-1.3); POTASSIUM - SERUM 3.5 mmol/L (3.5-5.1); PROTEIN - SERUM 6.2 g/dL (6.4-8.2); SODIUM 136 mmol/L (136-145); UREA NITROGEN 6 mg/dL (7-18); eGFR NON AFRICAN AMERICAN > 90 mL/min (90-120)
[2017-11-08 04:26] LABS: ALT (SGPT) 76 U/L (10-68); CALC OSMOLALITY 271 mosm/kg (275-300); GLUCOSE 140 mg/dL (74-106)
[2017-11-08 11:14] LABS: FUNGUS STAIN Final report (())
[2017-11-09] VITALS (24 sets, daily range): BP systolic 138–173; BP diastolic 72–93
[2017-11-09 05:48] LABS: BASOPHILS 0.3 % (0-2); EOSINOPHILS 3.3 % (0-7); HEMATOCRIT 25.9 % (42.0-54.0); HEMOGLOBIN 8.2 g/dL (13.5-17.5); IMMATURE GRANULOCYTES 6.5 % (0-5); LYMPHOCYTES 17.3 % (15-50); MCH 27.2 pg (26.0-34.0); MCHC 31.7 g/dL (31.0-37.0); MCV 85.8 fL (80.0-100.0); MEAN PLATELET VOLUME 9.8 fL (7.4-10.4); MONOCYTES 11.8 % (2-11); NEUTROPHILS 60.8 % (40-80); PLATELET COUNT 618 10x3/uL (130-400); RBC 3.02 10x6/uL (4.20-6.10); RDW 13.8 % (11.5-14.5); WBC 20.3 10x3/uL (4.8-10.8)
[2017-11-09 06:07] LABS: ALBUMIN 1.8 g/dL (3.4-5.0); ALKALINE PHOSPHATASE 156 U/L (46-116); ALT (SGPT) 88 U/L (10-68); BILIRUBIN - TOTAL 0.36 mg/dL (0.2-1.3); CALC OSMOLALITY 268 mosm/kg (275-300); CALCIUM 8.4 mg/dL (8.5-10.1); CARBON DIOXIDE 32.1 mmol/L (21.0-32.0); CHLORIDE - SERUM 98 mmol/L (98-107); CREATININE - SERUM 0.8 mg/dL (0.6-1.3); GLUCOSE 110 mg/dL (74-106); POTASSIUM - SERUM 3.9 mmol/L (3.5-5.1); PROTEIN - SERUM 6.3 g/dL (6.4-8.2); SODIUM 135 mmol/L (136-145); eGFR NON AFRICAN AMERICAN > 90 mL/min (90-120)
[2017-11-09 06:10] LABS: UREA NITROGEN 8 mg/dL (7-18)
[2017-11-10] VITALS (8 sets, daily range): BP systolic 144–169; BP diastolic 74–91
[2017-11-10 06:39] LABS: BASOPHILS 0.1 % (0-2); EOSINOPHILS 4.5 % (0-7); HEMATOCRIT 27.6 % (42.0-54.0); HEMOGLOBIN 8.7 g/dL (13.5-17.5); IMMATURE GRANULOCYTES 5.1 % (0-5); LYMPHOCYTES 15.9 % (15-50); MCH 27.2 pg (26.0-34.0); MCHC 31.5 g/dL (31.0-37.0); MCV 86.3 fL (80.0-100.0); MEAN PLATELET VOLUME 9.7 fL (7.4-10.4); MONOCYTES 9.4 % (2-11); PLATELET COUNT 506 10x3/uL (130-400); RDW 13.9 % (11.5-14.5)
[2017-11-10 06:40] LABS: WBC 13.6 10x3/uL (4.8-10.8)
[2017-11-10 06:53] LABS: ALBUMIN 1.7 g/dL (3.4-5.0); ALKALINE PHOSPHATASE 142 U/L (46-116); ALT (SGPT) 79 U/L (10-68); BILIRUBIN - TOTAL 0.25 mg/dL (0.2-1.3); CALC OSMOLALITY 276 mosm/kg (275-300); CALCIUM 8.5 mg/dL (8.5-10.1); CARBON DIOXIDE 32.2 mmol/L (21.0-32.0); CHLORIDE - SERUM 100 mmol/L (98-107); CREATININE - SERUM 0.9 mg/dL (0.6-1.3); GLUCOSE 109 mg/dL (74-106); POTASSIUM - SERUM 3.9 mmol/L (3.5-5.1); PROTEIN - SERUM 6.2 g/dL (6.4-8.2); SODIUM 139 mmol/L (136-145); UREA NITROGEN 8 mg/dL (7-18); eGFR NON AFRICAN AMERICAN > 90 mL/min (90-120)
[2017-11-10] MEDS ORDERED: METOPROLOL TART50 MG PO (10:30)
[2017-11-10] MEDS ORDERED: NORVASC5 MG PO (10:30)
[2017-11-10] MEDS ORDERED: ZYLOPRIM300 MG PO (10:31)
[2017-11-10] MEDS ORDERED: VIBRAMYCIN 100100 MG PO (10:34)
[2017-11-17 20:09] LABS: AEROBE ID Final report (())
[2017-12-02 16:24] LABS: FUNGUS MYCOLOGY CULTURE Final report (())
[2017-12-25 18:08] LABS: ACID FAST CULTURE Negative (()); ACID FAST SMEAR Negative (())
== END 2017-11-10 16:00 | disposition home or self-care (01) | DRG 853 ==
LOC: D.ER 19:32 → D.ICU 20:19
PROVIDERS: Anesthesiology; Emergency Medicine; Family Medicine; Internal Medicine Cardiovascular Disease; Internal Medicine Nephrology; Thoracic Surgery (Cardiothoracic Vascular Surgery)
PROC: 05HY33Z Insertion of Infusion Device into Upper Vein, Percutaneous Approach (ICD-10-PCS; principal; 2017-11-02)
PROC: 0W9B0ZZ Drainage of Left Pleural Cavity, Open Approach (ICD-10-PCS; 2017-11-05)
PROC: 0BJ08ZZ Inspection of Tracheobronchial Tree, Via Natural or Artificial Opening Endoscopic (ICD-10-PCS; 2017-11-05)
PROC: 0BNJ0ZZ Release Left Lower Lung Lobe, Open Approach (ICD-10-PCS; 2017-11-05 07:30)
DX: A41.9 Sepsis, unspecified organism (principal); J96.01 Acute respiratory failure with hypoxia; J86.9 Pyothorax without fistula; J85.1 Abscess of lung with pneumonia; J90 Pleural effusion, not elsewhere classified; J94.2 Hemothorax; E66.2 Morbid (severe) obesity with alveolar hypoventilation; Z68.43 Body mass index [BMI] 50.0-59.9, adult; D68.9 Coagulation defect, unspecified; E03.9 Hypothyroidism, unspecified; F32.9 Major depressive disorder, single episode, unspecified; G47.33 Obstructive sleep apnea (adult) (pediatric); I10 Essential (primary) hypertension; R07.89 Other chest pain; E66.01 Morbid (severe) obesity due to excess calories; D50.9 Iron deficiency anemia, unspecified; G40.909 Epilepsy, unspecified, not intractable, without status epilepticus

== ENCOUNTER 2017-11-22 17:56 | Inpatient (IN) | payer MEDICARE ==
[~2017-11-22] VITALS: Ht 185.4 cm; Wt 190.9 kg
--- NOTE | ~2017-11-22 | EC ---
PATIENT:PORTER NAVA JR DATE OF SERVICE: 11/22/17 SEX: M MEDICAL RECORD: [id number] DATE OF : [birth year] LOCATION:D.M2 D.212 AGE OF PATIENT: 42 ADMISSION DATE: 11/22/17 REFERRING PHYSICIAN: INTERPRETING PHYSICIAN: HEATH STEWART MD ECHOCARDIOGRAM REPORT ECHO CHARGES 4 ECHO COMPLETE Date: 11/23 CLINICAL DIAGNOSIS: CHF ECHOCARDIOGRAPHIC MEASUREMENTS (adult normal given) AC root (d.<3.7cm) 3.4 cm LV Septum d (<1.2 cm> 1.8 cm Valve Excursion 1.8 cm LV Septum (systole) 2.1 cm Left Atria (s.<4.0cm> 4.8 cm LVPW d(<1.2cm) 1.5 cm RV (d.<2.3cm) 3.0 cm LVPW (sytole) 1.5 cm LV diastole(<5.6CM) 6.9 cm MV E-F(>70mm/sec) cm LV systole 5.7 cm LVOT Diameter 2.3 cm MV exc.(>10mm) 2.1 cm Est.ejection fraction (50-75%) % DOPPLER: LVIT cm/sec A 61.0 cm/sec E 106 cm/sec LA cm/sec RVSP 21 mmHg LVOT 113 cm/sec AOP1/2T m/s Asc. Ao 165 cm/sec RVOT 113 cm/sec RA 89 cm/sec PA cm/sec AV Gradient Peak 9.10 mmHg AV Mean 6.25 mmHg AV Area 2.4 cm MV Gradient Peak 7.45 mmHg MV Mean 2.36 mmHg MV Area cm COMMENTS: Reporting Analyst: Sanju MILLS Chief Executive Officer: 2 Dr. Tinsley TAPE# PACS Pericardial Effusion Y DATE OF SERVICE: 11/23/2017 FINDINGS: 1. Left ventricular chamber size is within normal limits. Left ventricular systolic function is normal. Overall ejection fraction estimated at 60%. 2. Left atrium is enlarged at 4.8 cm. Right atrium and right ventricle chamber sizes are as well moderately dilated. 3. Valvular structure have normal structure and motion. 4. Doppler interrogation only reveals mild tricuspid regurgitation. No other valvular insufficiency or stenosis. ECHOCARDIOGRAM REPORT [id number] PORTER NAVA JR 5. No evidence of pericardial effusion or left ventricular thrombus. TRANSINT:[id number] Voice Confirmation ID: [id number] DOCUMENT ID: [id number] HEATH STEWART MD at 1230 CC: [id number] DICTATION DATE: 11/23/17 1555 FOREST RANGER: 11/23/17 1615 ADM IN [facility] [address] [place] [address]
[~2017-11-22 17:56] MED LIST changes: +CLONAZEPAM2 MG/TAB PO; +FISH OIL 1,0001 CA1 PO; +METOPROLOL TART50 MG PO; +NORVASC5 MG PO; +VIBRAMYCIN 100100 MG PO; +ZYLOPRIM300 MG PO
[2017-11-22 22:01] LABS: BASOPHILS 0.1 % (0-2); EOSINOPHILS 0.7 % (0-7); HEMATOCRIT 29.2 % (42.0-54.0); HEMOGLOBIN 9.2 g/dL (13.5-17.5); IMMATURE GRANULOCYTES 0.6 % (0-5); LYMPHOCYTES 15.5 % (15-50); MCH 27.1 pg (26.0-34.0); MCHC 31.5 g/dL (31.0-37.0); MCV 85.9 fL (80.0-100.0); MEAN PLATELET VOLUME 9.6 fL (7.4-10.4); MONOCYTES 10.4 % (2-11); NEUTROPHILS 72.7 % (40-80); RDW 14.5 % (11.5-14.5); WBC 15.2 10x3/uL (4.8-10.8)
[2017-11-22 22:46] LABS: ALBUMIN 2.5 g/dL (3.4-5.0); ALKALINE PHOSPHATASE 194 U/L (46-116); ALT (SGPT) 29 U/L (10-68); BILIRUBIN - TOTAL 0.42 mg/dL (0.2-1.3); CALC OSMOLALITY 278 mosm/kg (275-300); CALCIUM 8.6 mg/dL (8.5-10.1); CARBON DIOXIDE 29.2 mmol/L (21.0-32.0); CHLORIDE - SERUM 102 mmol/L (98-107); CKMB 0.3 U/L (0.0-3.6); CREATINE KINASE 57 UL (21-232); CREATININE - SERUM 1.3 mg/dL (0.6-1.3); GLUCOSE 106 mg/dL (74-106); PHENYTOIN (DILANTIN) 3.3 ug/mL (10.0-20.0); POTASSIUM - SERUM 4.4 mmol/L (3.5-5.1); PROTEIN - SERUM 8.4 g/dL (6.4-8.2); SODIUM 140 mmol/L (136-145); T4 THYROXINE 3.2 ug/dL (4.7-13.3); THYROID STIMULATING HORMONE 4.35 uIU/mL (0.36-3.74); TROPONIN-I < 0.017 ng/mL (0.000-0.060); UREA NITROGEN 13 mg/dL (7-18); eGFR NON AFRICAN AMERICAN 65 mL/min (90-120)
[2017-11-22 22:47] LABS: PLATELET COUNT 653 10x3/uL (130-400)
[2017-11-22] MEDS ORDERED: DIFLUCAN150 MG PO (23:35)
[2017-11-22] MEDS ORDERED: KLONOPIN1 MG PO ×2 (23:39)
[2017-11-22] MEDS ORDERED: NYSTATIN1 PWD TOPICAL (23:48)
[2017-11-22] MEDS ORDERED: ZANTAC300 MG PO (23:48)
[2017-11-22] MEDS ORDERED: MIRALAX17 GM PO (23:48)
[2017-11-23] VITALS (7 sets, daily range): BP systolic 119–160; BP diastolic 39–77; Ht 185.4 cm; Wt 190.9 kg
[2017-11-23 00:19] LABS: APPEARANCE CLEAR (CLEAR); BILIRUBIN NEGATIVE (NEGATIVE); COLOR YELLOW (YELLOW); GLUCOSE NEGATIVE (NEGATIVE); KETONE NEGATIVE (NEGATIVE); NITRITE NEGATIVE (NEGATIVE); PROTEIN NEGATIVE (NEGATIVE); SPECIFIC GRAVITY 1.005 (1.005-1.020); UROBILINOGEN NORMAL (NORMAL)
[2017-11-23 06:57] LABS: CKMB 0.3 U/L (0.0-3.6); CREATINE KINASE 58 UL (21-232)
[2017-11-23 07:00] LABS: TROPONIN-I < 0.017 ng/mL (0.000-0.060)
[2017-11-23 14:53] LABS: CKMB 0.2 U/L (0.0-3.6); CREATINE KINASE 36 UL (21-232)
[2017-11-23 14:58] LABS: TROPONIN-I < 0.017 ng/mL (0.000-0.060)
[2017-11-24 00:32] VITALS: BP 127/58
[2017-11-24 05:07] VITALS: BP 134/57
[2017-11-24 08:10] VITALS: BP 116/34
[2017-11-24 08:37] LABS: BASOPHILS 0.2 % (0-2); EOSINOPHILS 2.2 % (0-7); HEMOGLOBIN 8.1 g/dL (13.5-17.5); IMMATURE GRANULOCYTES 0.7 % (0-5); LYMPHOCYTES 13.4 % (15-50); MCH 26.3 pg (26.0-34.0); MCHC 31.2 g/dL (31.0-37.0); MCV 84.4 fL (80.0-100.0); MEAN PLATELET VOLUME 9.8 fL (7.4-10.4); NEUTROPHILS 70.5 % (40-80); RBC 3.08 10x6/uL (4.20-6.10); RDW 14.7 % (11.5-14.5); WBC 14.1 10x3/uL (4.8-10.8)
[2017-11-24 08:39] LABS: PLATELET COUNT 495 10x3/uL (130-400)
[2017-11-24 08:49] LABS: CALC OSMOLALITY 277 mosm/kg (275-300); CALCIUM 8.3 mg/dL (8.5-10.1); CARBON DIOXIDE 30.2 mmol/L (21.0-32.0); CHLORIDE - SERUM 102 mmol/L (98-107); GLUCOSE 98 mg/dL (74-106); PHOSPHOROUS 3.5 mg/dL (2.5-4.9); SODIUM 140 mmol/L (136-145); eGFR NON AFRICAN AMERICAN 88 mL/min (90-120)
[2017-11-24 09:02] LABS: UREA NITROGEN 9 mg/dL (7-18)
[2017-11-24 11:02] VITALS: BP 135/46
[2017-11-24 14:47] VITALS: BP 128/61
[2017-11-24 20:56] VITALS: BP 130/73
[2017-11-25 00:46] VITALS: BP 135/57
[2017-11-25 05:03] VITALS: BP 152/68
[2017-11-25 05:42] LABS: BASOPHILS 0.2 % (0-2); EOSINOPHILS 3.9 % (0-7); IMMATURE GRANULOCYTES 1.3 % (0-5); LYMPHOCYTES 19.5 % (15-50); MCH 26.1 pg (26.0-34.0); MCHC 30.8 g/dL (31.0-37.0); MCV 84.7 fL (80.0-100.0); MEAN PLATELET VOLUME 10.1 fL (7.4-10.4); MONOCYTES 12.3 % (2-11); NEUTROPHILS 62.8 % (40-80); PLATELET COUNT 535 10x3/uL (130-400); RBC 3.07 10x6/uL (4.20-6.10); RDW 14.8 % (11.5-14.5); WBC 12.3 10x3/uL (4.8-10.8)
[2017-11-25 21:35] VITALS: BP 154/60
[2017-11-26 01:10] VITALS: BP 132/64
[2017-11-26 05:05] VITALS: BP 105/49
[2017-11-26 08:16] VITALS: BP 148/64
[2017-11-26 11:14] VITALS: BP 132/62
[2017-11-26 15:29] VITALS: BP 143/66
[2017-11-26 20:00] VITALS: BP 114/63
[2017-11-27] VITALS: BP 132/61
[2017-11-27 04:00] VITALS: BP 139/71
[2017-11-27 05:30] LABS: BASOPHILS 0.4 % (0-2); EOSINOPHILS 4.8 % (0-7); HEMATOCRIT 27.6 % (42.0-54.0); HEMOGLOBIN 8.6 g/dL (13.5-17.5); IMMATURE GRANULOCYTES 3.8 % (0-5); LYMPHOCYTES 18.4 % (15-50); MCH 26.5 pg (26.0-34.0); MCHC 31.2 g/dL (31.0-37.0); MCV 84.9 fL (80.0-100.0); MEAN PLATELET VOLUME 10.1 fL (7.4-10.4); MONOCYTES 14.1 % (2-11); NEUTROPHILS 58.5 % (40-80); PLATELET COUNT 466 10x3/uL (130-400); RBC 3.25 10x6/uL (4.20-6.10); RDW 15.3 % (11.5-14.5)
[2017-11-27 05:53] LABS: CALC OSMOLALITY 271 mosm/kg (275-300); CARBON DIOXIDE 29.8 mmol/L (21.0-32.0); CHLORIDE - SERUM 100 mmol/L (98-107); GLUCOSE 94 mg/dL (74-106); POTASSIUM - SERUM 3.5 mmol/L (3.5-5.1); SODIUM 137 mmol/L (136-145); UREA NITROGEN 8 mg/dL (7-18); eGFR NON AFRICAN AMERICAN 88 mL/min (90-120)
[2017-11-27 09:13] VITALS: BP 136/75
[2017-11-27 10:14] LABS: HEPATITIS C ANTIBODY 0.1 (0.0-0.9)
[2017-11-27 12:34] VITALS: BP 121/61
[2017-11-27 16:38] VITALS: BP 144/64
[2017-11-27 20:30] VITALS: BP 145/466
[2017-11-28 04:30] VITALS: BP 147/59
[2017-11-28 06:05] LABS: BASOPHILS 0.4 % (0-2); EOSINOPHILS 4.8 % (0-7); HEMATOCRIT 27.7 % (42.0-54.0); HEMOGLOBIN 8.6 g/dL (13.5-17.5); IMMATURE GRANULOCYTES 4.2 % (0-5); LYMPHOCYTES 20.3 % (15-50); MCH 26.1 pg (26.0-34.0); MCV 84.2 fL (80.0-100.0); MONOCYTES 10.7 % (2-11); NEUTROPHILS 59.6 % (40-80); PLATELET COUNT 462 10x3/uL (130-400); RBC 3.29 10x6/uL (4.20-6.10); RDW 15.5 % (11.5-14.5); WBC 11.3 10x3/uL (4.8-10.8)
[2017-11-28 06:37] LABS: CALC OSMOLALITY 268 mosm/kg (275-300); CARBON DIOXIDE 28.8 mmol/L (21.0-32.0); CHLORIDE - SERUM 100 mmol/L (98-107); GLUCOSE 83 mg/dL (74-106); SODIUM 136 mmol/L (136-145); UREA NITROGEN 8 mg/dL (7-18); eGFR NON AFRICAN AMERICAN 88 mL/min (90-120)
[2017-11-28 06:39] LABS: POTASSIUM - SERUM 4.2 mmol/L (3.5-5.1)
[2017-11-28 08:57] VITALS: BP 170/80
[2017-11-28] MEDS ORDERED: VIBRAMYCIN 100100 MG PO (10:56)
[2017-11-28] MEDS ORDERED: OMNICEF300 MG PO (10:56)
[2017-11-28 12:33] VITALS: BP 171/57
[2017-11-28 16:08] VITALS: BP 127/58
[2017-11-28 20:00] VITALS: BP 151/74
[2017-11-29] VITALS: BP 132/49
[2017-11-29 04:00] VITALS: BP 123/58
[2017-11-29 08:54] VITALS: BP 160/61
[2017-11-29 12:01] VITALS: BP 129/48
[2017-11-29] MEDS ORDERED: TESSALON PERLE100 MG PO (12:06)
== END 2017-11-29 18:52 | disposition home health service (06) | DRG 689 ==
LOC: D.M2 17:56
PROVIDERS: Family Medicine; Internal Medicine Nephrology; Internal Medicine Pulmonary Disease
PROC: 05HC33Z Insertion of Infusion Device into Left Basilic Vein, Percutaneous Approach (ICD-10-PCS; principal; 2017-11-25)
PROC: B54NZZA Ultrasonography of Left Upper Extremity Veins, Guidance (ICD-10-PCS; 2017-11-25)
DX: N39.0 Urinary tract infection, site not specified (principal); J18.9 Pneumonia, unspecified organism; Z68.43 Body mass index [BMI] 50.0-59.9, adult; J90 Pleural effusion, not elsewhere classified; E66.2 Morbid (severe) obesity with alveolar hypoventilation; D50.9 Iron deficiency anemia, unspecified; G40.909 Epilepsy, unspecified, not intractable, without status epilepticus; I10 Essential (primary) hypertension; I25.10 Atherosclerotic heart disease of native coronary artery without angina pectoris; G47.33 Obstructive sleep apnea (adult) (pediatric); F32.9 Major depressive disorder, single episode, unspecified; F41.9 Anxiety disorder, unspecified; F43.10 Post-traumatic stress disorder, unspecified; K59.00 Constipation, unspecified; M10.9 Gout, unspecified; E03.9 Hypothyroidism, unspecified; J31.0 Chronic rhinitis; B95.61 Methicillin susceptible Staphylococcus aureus infection as the cause of diseases classified elsewhere; Z87.891 Personal history of nicotine dependence

== ENCOUNTER → 2018-03-29 14:23 | Outpatient (CLI) | payer MEDICARE ==
[2017-11-23 13:08] VITALS: BMI 55.6
[~2018-03-29 14:23] MED LIST changes: +DIFLUCAN150 MG PO; +KLONOPIN1 MG PO; +MIRALAX17 GM PO; +NYSTATIN1 PWD TOPICAL; +OMNICEF300 MG PO; +TESSALON PERLE100 MG PO
== END | disposition home or self-care (01) ==
LOC: D.CT 03-28 13:00
DX: J18.9 Pneumonia, unspecified organism (principal)

== ENCOUNTER 2018-05-17 13:24 | Inpatient (IN) | payer MEDICARE ==
[~2018-05-17] VITALS: Ht 185.4 cm; Wt 179.5 kg
[2018-05-17 14:10] LABS: BASOPHILS 0.2 % (0-2); EOSINOPHILS 1.1 % (0-7); HEMATOCRIT 35.1 % (42.0-54.0); HEMOGLOBIN 11.6 g/dL (13.5-17.5); IMMATURE GRANULOCYTES 0.4 % (0-5); LYMPHOCYTES 19.3 % (15-50); MCV 78.7 fL (80.0-100.0); MEAN PLATELET VOLUME 9.9 fL (7.4-10.4); MONOCYTES 10.9 % (2-11); NEUTROPHILS 68.1 % (40-80); PLATELET COUNT 500 10x3/uL (130-400); RBC 4.46 10x6/uL (4.20-6.10); RDW 16.9 % (11.5-14.5); WBC 13.1 10x3/uL (4.8-10.8)
[2018-05-17 14:16] LABS: INR 1.42 (0.85-1.17); PROTIME 16.7 SECONDS (11.6-15.0)
[2018-05-17 14:18] LABS: D-DIMER-QUANTITATIVE 1.82 ug/mLFEU (0.20-0.54)
[2018-05-17 14:28] LABS: ALKALINE PHOSPHATASE 139 U/L (46-116); ALT (SGPT) 16 U/L (10-68); BILIRUBIN - TOTAL 0.23 mg/dL (0.2-1.3); CALC OSMOLALITY 274 mosm/kg (275-300); CARBON DIOXIDE 28.6 mmol/L (21.0-32.0); CHLORIDE - SERUM 98 mmol/L (98-107); CREATININE - SERUM 1.1 mg/dL (0.6-1.3); GLUCOSE 100 mg/dL (74-106); POTASSIUM - SERUM 3.8 mmol/L (3.5-5.1); PROTEIN - SERUM 8.8 g/dL (6.4-8.2); SODIUM 138 mmol/L (136-145); UREA NITROGEN 10 mg/dL (7-18); eGFR NON AFRICAN AMERICAN 78 mL/min (90-120)
[2018-05-17 14:38] LABS: CKMB 0.3 U/L (0.0-3.6); CREATINE KINASE 39 UL (21-232); PRO BNP 142 pg/mL (0-125); TROPONIN-I < 0.017 ng/mL (0.000-0.060)
[2018-05-17] MEDS ORDERED: ZANTAC300 MG PO (20:53)
--- NOTE | 2018-05-17 21:00 | NUR ---
PT ARRIVED TO ROOM 2130, PT IS AAO, UP AD [place]. PT VITALS DONE, MED REC AND PHARMACY COMPLETE. SANDWICH PROVIDED. PT ASKING ABOUT DILAUDID,RECEIVED AT 1813 INFORMED PT IT IS NOT AVALIBLE AT THIS TIME PER ORDER. CALLED RESP REGARDING BREATHING TREATMENT. PT DENIES ANY NEEDS. NO S/S OF DISTRESS. NAME AND DATE PLACED ON BOARD. WILL CPOC
--- NOTE | 2018-05-17 22:00 | NUR ---
NO TELEMETRY AVALIBLE FOR PT AT THIS TIME. INFORMED COMMUTATOR UNDERCUTTER OF NEED OF TELEMETRY. HEART HISTORY IS HTN AND CAD. PT STATES HE FEELS HE DOESNT NEED A MONITOR.
--- NOTE | 2018-05-17 23:22 | NUR ---
SPOKE WITH MICHELLE JACOBSON REGARDING MEDS PT IS ASKING FOR,RESTARTED 3 NIGHT TIME MEDS. DID NOT RESTART THE LOPRESSOR OR NORVASC DUE TO HEART RATE 53,BP 122/48.
[2018-05-18] VITALS (7 sets, daily range): BP systolic 110–139; BP diastolic 48–66; Ht 185.4 cm; Wt 179.5 kg
--- NOTE | 2018-05-18 01:08 | NUR ---
PT COMPLAINS OF PAIN. DILAUDID GIVEN THROUGH RIGHT AC IV. PT DENIES ANY OTHER NEEDS. HISTORY COMPLETE. ADJUSTED DOSE OF SEROQUEL,NOW PT STATES ON 600MG OF SEROQUEL. FIXED ORDER AND RETURNED TO [facility]. PT TOOK HIS NIGHT DOSE OF SEROQUEL FROM HOME. PT HAS NO S/SOF DISTRESS. WILL CPOC
[2018-05-18 06:15] LABS: BASOPHILS 0.3 % (0-2); EOSINOPHILS 2.5 % (0-7); HEMATOCRIT 32.8 % (42.0-54.0); HEMOGLOBIN 10.6 g/dL (13.5-17.5); IMMATURE GRANULOCYTES 0.4 % (0-5); LYMPHOCYTES 24.6 % (15-50); MCH 25.4 pg (26.0-34.0); MCHC 32.3 g/dL (31.0-37.0); MCV 78.7 fL (80.0-100.0); MEAN PLATELET VOLUME 10.1 fL (7.4-10.4); MONOCYTES 15.6 % (2-11); NEUTROPHILS 56.6 % (40-80); RBC 4.17 10x6/uL (4.20-6.10); RDW 17.1 % (11.5-14.5)
[2018-05-18 06:16] LABS: PLATELET COUNT 332 10x3/uL (130-400); WBC 9.1 10x3/uL (4.8-10.8)
[2018-05-18 06:45] LABS: ALBUMIN 2.6 g/dL (3.4-5.0); ALKALINE PHOSPHATASE 126 U/L (46-116); ALT (SGPT) 14 U/L (10-68); BILIRUBIN - TOTAL 0.28 mg/dL (0.2-1.3); CALC OSMOLALITY 273 mosm/kg (275-300); CALCIUM 8.7 mg/dL (8.5-10.1); CARBON DIOXIDE 26.2 mmol/L (21.0-32.0); CHLORIDE - SERUM 100 mmol/L (98-107); CREATININE - SERUM 1.1 mg/dL (0.6-1.3); GLUCOSE 64 mg/dL (74-106); POTASSIUM - SERUM 4.4 mmol/L (3.5-5.1); PROTEIN - SERUM 7.1 g/dL (6.4-8.2); SODIUM 138 mmol/L (136-145); UREA NITROGEN 13 mg/dL (7-18); eGFR NON AFRICAN AMERICAN 78 mL/min (90-120)
--- NOTE | 2018-05-18 06:48 | NUR ---
PT RESTING IN BED. DENIES ANY NEEDS. NO S/S OF DISTRESS. WILL CPOC
--- NOTE | 2018-05-18 08:04 | NUR ---
RECEIVED A/A/OX4. REQUESTING PAIN MED FOR PAIN IN LEFT FLANK AREA. STATES PAIN IS PRESENT CONTINUOUSLY BUT WORSE WHEN HE COUGHS. MEDICATION ADMINISTERED. BED IN LOW POSITION WITH SIDERAILS UP X 2. CALL LIGHT IN REACH. NO OTHER REQUESTS. ASSESSMENT COMPLETED.
--- NOTE | 2018-05-18 10:16 | NUR ---
NO NEEDS OR C/O VOICED AT THIS TIME. WILL MONITOR.
--- NOTE | 2018-05-18 14:38 | NUR ---
RATIONALE FOR SCD'S EXPLAINED. REFUSED SCD'S
--- NOTE | 2018-05-18 19:59 | NUR ---
RESUMING PATIENT CARE. PATIENT IS ALERT AND ORIENTED. PATIENT RESTING COMFORTABLY IN THE CHAIR. PATIENT RECEIVING BREATHING TREATMENT. RESPIRATIONS ARE EVEN AND UNLABORED. NO S/S OF DISTRESS. NO C/O PAIN. PATIENT VERBALIZED NO NEEDS AT THIS TIME.
--- NOTE | 2018-05-19 00:37 | NUR ---
UNABLE TO PLACE THE PATIENT ON TELEMETRY DUE TO NO MONITORS AVAILABLE. WILL PASS ALONG TO AM SHIFT.
[2018-05-19 01:12] VITALS: BP 125/66
[2018-05-19 06:11] VITALS: BP 130/78
[2018-05-19 06:35] LABS: ALBUMIN 2.5 g/dL (3.4-5.0); ALKALINE PHOSPHATASE 133 U/L (46-116); ALT (SGPT) 17 U/L (10-68); BILIRUBIN - TOTAL 0.16 mg/dL (0.2-1.3); CALC OSMOLALITY 277 mosm/kg (275-300); CARBON DIOXIDE 27.1 mmol/L (21.0-32.0); CHLORIDE - SERUM 101 mmol/L (98-107); CREATININE - SERUM 0.9 mg/dL (0.6-1.3); GLUCOSE 91 mg/dL (74-106); POTASSIUM - SERUM 3.8 mmol/L (3.5-5.1); SODIUM 140 mmol/L (136-145); UREA NITROGEN 11 mg/dL (7-18); eGFR NON AFRICAN AMERICAN > 90 mL/min (90-120)
[2018-05-19 07:04] LABS: HEMATOCRIT 32.2 % (42.0-54.0); HEMOGLOBIN 10.7 g/dL (13.5-17.5); MCH 26.2 pg (26.0-34.0); MCHC 33.2 g/dL (31.0-37.0); MCV 78.9 fL (80.0-100.0); MEAN PLATELET VOLUME 10.1 fL (7.4-10.4); PLATELET COUNT 414 10x3/uL (130-400); RBC 4.08 10x6/uL (4.20-6.10); RDW 16.4 % (11.5-14.5); WBC 7.8 10x3/uL (4.8-10.8)
--- NOTE | 2018-05-19 07:13 | NUR ---
NO TELEMETRY MONITORS AVAILABLE.
[2018-05-19 07:49] VITALS: BP 135/69
--- NOTE | 2018-05-19 11:13 | NUR ---
PT WANITNG IBPROFEN FOR HEADACHE. SPOKE WITH MICHELLE HINDS AND SHE STATED LONG CREATNINE IS BETZY HE CAN HAVE IBPROFEN 200MG Q6HP. PT'S CREATNINE IS 0.9.
--- NOTE | 2018-05-19 11:25 | NUR ---
CALLED PHARMACY AND ASKED THEM TO BRING ADVIL THEY STATED THEY WOULD.
[2018-05-19 11:28] VITALS: BP 132/65
--- NOTE | 2018-05-19 11:45 | NUR ---
THREE STAVE CUTTER'S AND NURSE UNABLE TO DRAW BLOOD. RIGHT AC IV INFILTRATED. PT STATES HE HAS HAD MULTIPLE PICC LINE'S ON PREVIOUS HOSPITAL STAYS. MICHELLE HINDS PAGED.
--- NOTE | 2018-05-19 11:51 | NUR ---
SPOKE WITH MICHELLE HINDS AND SHE STATED TO HAVE PICC LINE PLACED.
--- NOTE | 2018-05-19 11:54 | NUR ---
SPOKE WITH SARAI VASCULAR ACCESS NURSE AND SHE VERBALIZED UNDERSTANDING OF PICC LINE PLACEMENT ORDERED BY MICHELLE HINDS.
--- NOTE | 2018-05-19 11:59 | NUR ---
RIGHT AC 20G IV DC'D WITH CATH INTACT.
--- NOTE | 2018-05-19 11:59 | NUR ---
UP TO CHAIR. JORGE NEEDS AT THIS TIME. CALL LIGHT IN REACH.
[2018-05-19 15:54] VITALS: BP 123/57
--- NOTE | 2018-05-19 16:00 | NUR ---
LEFT UPPER ARM MIDLINE PLACED BY VASCULAR ACCESS NURSE.
--- NOTE | 2018-05-19 18:29 | NUR ---
EGD CONSENTS SIGNED AND IN CHART. PT AWARE OF NPO AFTER MIDNIGHT AND VERBALZIED UNDERSTANDING.
--- NOTE | 2018-05-19 19:30 | NUR ---
RESUMING PATIENT CARE. PATIENT IS ALERT AND ORIENTED. SITTING UP IN CHAIR. RESPIRATIONS ARE EVEN AND UNLABORED. NO S/S OF DISTRESS. NO C/O PAIN. PATIENT EXPRESSED NO NEEDS AT THIS TIME. CALL LIGHT WITHIN REACH. WILL CPOC.
[2018-05-19 20:00] VITALS: BP 138/55
[2018-05-20] VITALS: BP 133/70
[2018-05-20 04:00] VITALS: BP 144/79
[2018-05-20 07:50] LABS: ALBUMIN 2.6 g/dL (3.4-5.0); ALKALINE PHOSPHATASE 128 U/L (46-116); ALT (SGPT) 19 U/L (10-68); BILIRUBIN - TOTAL 0.16 mg/dL (0.2-1.3); CALC OSMOLALITY 280 mosm/kg (275-300); CARBON DIOXIDE 29.7 mmol/L (21.0-32.0); CHLORIDE - SERUM 103 mmol/L (98-107); GLUCOSE 78 mg/dL (74-106); POTASSIUM - SERUM 3.8 mmol/L (3.5-5.1); PROTEIN - SERUM 7.9 g/dL (6.4-8.2); SODIUM 142 mmol/L (136-145); UREA NITROGEN 10 mg/dL (7-18); eGFR NON AFRICAN AMERICAN 87 mL/min (90-120)
[2018-05-20 07:52] VITALS: BP 141/71
[2018-05-20 07:56] LABS: BASOPHILS 0.4 % (0-2); EOSINOPHILS 3.7 % (0-7); HEMATOCRIT 32.4 % (42.0-54.0); HEMOGLOBIN 10.2 g/dL (13.5-17.5); IMMATURE GRANULOCYTES 0.4 % (0-5); LYMPHOCYTES 36.4 % (15-50); MCH 25.3 pg (26.0-34.0); MCHC 31.5 g/dL (31.0-37.0); MCV 80.4 fL (80.0-100.0); MEAN PLATELET VOLUME 10.1 fL (7.4-10.4); MONOCYTES 12.7 % (2-11); NEUTROPHILS 46.4 % (40-80); PLATELET COUNT 452 10x3/uL (130-400); RBC 4.03 10x6/uL (4.20-6.10); RDW 17.4 % (11.5-14.5); WBC 7.5 10x3/uL (4.8-10.8)
--- NOTE | 2018-05-20 10:20 | NUR ---
UP IN CHAIR WITH CALL LIGHT IN REACH. WILL MONITOR NEEDS.
[2018-05-20] MEDS ORDERED: LEVAQUIN750 MG PO (16:19)
[2018-05-20] MEDS ORDERED: OMNICEF300 MG PO (16:19)
--- NOTE | 2018-05-23 11:48 | MORECARE ---
CASE MANAGEMENT DISCHARGE SUMMARY PATIENT: PORTER NAVA JR UNIT: [id number] ADM DATE: 05/17/18 AGE: 43 : [birth year] SEX: M ROOM/BED: D.2131 AUTHOR: ISAIAH RUBIO PHYSICIAN: REFERRING PHYSICIAN: SHARAD PAZ MD DATE OF SERVICE: 05/23/18 Discharge Plan Patient Name: PORTER NAVA [facility] [facility] 1975 Planned Disposition: Home Anticipated Discharge Date: 05/20/18 Discharge Date: 05/20/2018 Expected LOS: 3 Initial Reviewer: [email or web address] Initial Review Date: 05/23/2018 Generated: 05/23/18 12:48 pm Patient Name: PORTER NAVA Page [id number] at 1148 All edits/amendments must be made on the electronic document DICTATION DATE: 05/23/18 1148 [employer] POLICE: OG 05/23/18 1148 RPT#: [id number] DC DATE:05/20/18 STATUS: DIS IN [facility] [address] [place] [address] END OF REPORT
--- NOTE | 2018-05-25 16:42 | CN ---
PATIENT NAME:PORTER NAVA JR MEDICAL RECORD: [id number] : 79 LOCATION:D.M2 D.2131 ADMIT DATE: 05/17/18 ACCOUNT: [id number] CONSULTING PHYSICIAN: RICHARD ALMENDAREZ MD REFERRING PHYSICIAN: SHARAD PAZ MD DATE OF CONSULTATION: 05/18/2018 CONSULT REQUESTING PHYSICIAN: Magdalene Harper MD REASON FOR CONSULTATION: Subcarinal mass, pneumonia left lower lobe, hemoptysis. HISTORY OF PRESENT ILLNESS: Mr. Nava is a 43-year-old gentleman who was admitted in October last year with a left hemothorax. He underwent a VATS and clearing of the hematoma by Dr. Stewart. According to the patient, he is sick for the last few days. He is coughing. The cough is with blood-tinged sputum with shortness of breath. He also has a fever. Now, the hemoptysis has been improving. The patient was supposed to be seen by me in March with a CT scan of the chest and at that time, the CT scan showed the lymph nodes were decreasing in size. It was 1.8 cm. REVIEW OF SYSTEMS: As in the history of present illness. PAST MEDICAL HISTORY: 1. Morbid obesity. 2. Obstructive sleep apnea. 3. Seizure disorder. 4. Hypertension. 5. Coronary artery disease. 6. Anxiety and depression. 7. Posttraumatic stress disorder. 8. History of left hemothorax. PAST SURGICAL HISTORY: 1. He has bilateral arthroscopic knee surgery. 2. He has bariatric surgery. 3. Appendectomy. 4. He has a left VATS in October. ALLERGIES: No known drug allergies. MEDICATIONS: [employer] is reviewed. PERSONAL AND SOCIAL HISTORY: The patient is an ex-smoker. He is a nondrinker. FAMILY HISTORY: Noncontributory. PHYSICAL EXAMINATION: GENERAL: Now, the patient is sitting in chair. He is not in acute distress. VITAL SIGNS: The blood pressure is 139/60, pulse is 73, respiration is 18, temperature 98.4, and SPO2 is 96% on room air. HEENT: Conjunctivae are pink. Sclerae are not icteric. NECK: Supple, no JVD. CHEST: There are crackles at the left base. No wheezing. HEART: Rhythm regular, normal sound, no murmur. CONSULT REPORT [id number] PORTER NAVA JR ABDOMEN: Soft, bowel sounds present. No hepatosplenomegaly. RECTAL: Deferred. EXTREMITIES: No cyanosis, no clubbing, no pedal edema. CENTRAL NERVOUS SYSTEM: The patient is awake and alert. There are no obvious cranial nerve abnormalities. The gait was not tested. IMAGING: CTA of the chest: There is an opacification of the major pulmonary vessels and no PE. There is enlargement of the subcarinal lymph node. There is also left-sided pleural thickening. There is also left side lower lobe consolidation, mass-like lesion. Possible atelectasis. OTHER LABORATORY DATA: WBC is 13.1, hemoglobin is 11.6, hematocrit 35.1, and the platelet count is 500. RECOMMENDATIONS: 1. Continue Levaquin. I will add Rocephin for Gram negative. 2. Albuterol/ipratropium nebulizer. 3. Brovana/budesonide nebulizer. 4. Racemic epinephrine. 5. The hemoptysis is most likely secondary to pneumonia and bronchitis, less likely vasculitis. 6. We will consult Dr. Gonzalez for the questionable mass in the left lower lobe and also subcarinal lymphadenopathy as well as Dr. Stewart. Less likely the lymph node will be malignant as they were decreasing in size in March since October last year. Dr. Harper thank you for involving me in the care of Mr. Nava. TRANSINT:[id number] Voice Confirmation ID: [id number] DOCUMENT ID: [id number] RICHARD ALMENDAREZ MD at 1642 CC: [id number] DICTATION DATE: 05/18/18 174 SAGGER FILLER: 05/18/182036 DIS IN 05/20/18 [facility] [address] [place] [address]
[2018-05-26 12:20] LABS: ANCA - ANTIMYELOPEROXIDASE <9.0 U/mL (0.0-9.0); ANCA - ANTIPROTEINASE 3 <3.5 U/mL (0.0-3.5); ANCA - ATYPICAL <1:20 titer (Neg:<1:20); ANCA - CYTOPLASMIC <1:20 titer (Neg:<1:20); ANCA - PERINUCLEAR <1:20 titer (Neg:<1:20)
== END 2018-05-20 18:03 | disposition home or self-care (01) | DRG 193 ==
LOC: D.ER 13:24 → D.EDHOLD 18:31 → D.M2 18:31
PROVIDERS: Family Medicine; Internal Medicine Gastroenterology; Internal Medicine Pulmonary Disease; ADMIT Emergency Medicine
PROC: 0DB68ZX Excision of Stomach, Via Natural or Artificial Opening Endoscopic, Diagnostic (ICD-10-PCS; principal; 2018-05-20 07:29)
DX: J18.1 Lobar pneumonia, unspecified organism (principal); J96.01 Acute respiratory failure with hypoxia; R04.2 Hemoptysis; E66.2 Morbid (severe) obesity with alveolar hypoventilation; Z68.43 Body mass index [BMI] 50.0-59.9, adult; G40.909 Epilepsy, unspecified, not intractable, without status epilepticus; I10 Essential (primary) hypertension; I25.10 Atherosclerotic heart disease of native coronary artery without angina pectoris; F41.9 Anxiety disorder, unspecified; F32.9 Major depressive disorder, single episode, unspecified; E03.9 Hypothyroidism, unspecified; K29.70 Gastritis, unspecified, without bleeding; K44.9 Diaphragmatic hernia without obstruction or gangrene; Z87.891 Personal history of nicotine dependence

== ENCOUNTER → 2018-08-17 14:06 | Outpatient (CLI) | payer MEDICARE ==
[2018-05-18 17:29] VITALS: BMI 47.6
[~2018-08-17 14:06] MED LIST changes: +LEVAQUIN750 MG PO
== END | disposition home or self-care (01) ==
LOC: D.CT 14:00
PROVIDERS: ATTEND Internal Medicine Pulmonary Disease
DX: R59.0 Localized enlarged lymph nodes (principal)

== ENCOUNTER → 2019-01-19 13:49 | Outpatient (CLI) | payer MEDICARE ==
[2018-05-18 17:29] VITALS: BMI 47.6
== END | disposition home or self-care (01) ==
LOC: D.CT 13:03
PROVIDERS: ATTEND Internal Medicine Pulmonary Disease
DX: R59.0 Localized enlarged lymph nodes (principal)

== ENCOUNTER 2019-05-16 08:00 | Outpatient (CLI) | payer MEDICARE, MEDICAID ==
[2019-05-23 09:30] VITALS: BMI 57.9
== END 2019-05-16 08:01 | disposition home or self-care (01) ==
LOC: D.CT 08:00
PROVIDERS: ATTEND Internal Medicine Pulmonary Disease
DX: R04.2 Hemoptysis (principal)

== ENCOUNTER 2019-05-23 08:07 | Outpatient (CLI) | payer MEDICARE ==
[~2019-05-23] VITALS: Ht 188 cm; Wt 204.5 kg
[2019-05-23 08:58] LABS: BASOPHILS 0.2 % (0-2); EOSINOPHILS 1.7 % (0-7); HEMATOCRIT 44.4 % (42.0-54.0); HEMOGLOBIN 14.7 g/dL (13.5-17.5); IMMATURE GRANULOCYTES 0.8 % (0-5); LYMPHOCYTES 33.8 % (15-50); MCH 29.3 pg (26.0-34.0); MCHC 33.1 g/dL (31.0-37.0); MCV 88.4 fL (80.0-100.0); MEAN PLATELET VOLUME 9.6 fL (7.4-10.4); MONOCYTES 8.2 % (2-11); NEUTROPHILS 55.3 % (40-80); PLATELET COUNT 372 10x3/uL (130-400); RBC 5.02 10x6/uL (4.20-6.10); RDW 13.5 % (11.5-14.5)
[2019-05-23 09:12] LABS: APTT 29.4 SECONDS (22.8-39.4); INR 1.03 (0.85-1.17); PROTIME 13.5 SECONDS (11.6-15.0)
[2019-05-23] MEDS ORDERED: STERAPRED DS 1210 MG PO (09:23)
[2019-05-23 09:30] VITALS: Ht 188 cm; Wt 204.5 kg
[2019-05-23] MEDS ORDERED: BUPRENORPHIN-N1 EACH SL ×2 (09:38→09:39)
--- NOTE | 2019-05-23 11:43 | NUR ---
PT IS RESTING IN BED. SIDE RAILS UP X'S 2. WILL CONTINUE TO MONITOR.
--- NOTE | 2019-05-23 13:03 | NUR ---
DC INSTRUCTIONS GIVEN TO PT. STATES UNDERSTANDING. DC'D IV CATH FULLY INTACT.
--- NOTE | 2019-05-23 13:24 | NUR ---
PT LEFT UNIT VIA WC AT 1324
== END 2019-05-23 13:24 | disposition home or self-care (01) ==
LOC: D.OPS 08:07
PROVIDERS: ATTEND Internal Medicine Pulmonary Disease
DX: R04.2 Hemoptysis (principal); E03.9 Hypothyroidism, unspecified; K21.9 Gastro-esophageal reflux disease without esophagitis; E78.2 Mixed hyperlipidemia; I10 Essential (primary) hypertension; Z72.0 Tobacco use

== ENCOUNTER → 2019-12-26 10:25 | Outpatient (CLI) | payer MEDICARE ==
[2019-05-23 09:30] VITALS: BMI 57.9
[~2019-12-26 10:25] MED LIST changes: +STERAPRED DS 1210 MG PO
== END | disposition home or self-care (01) ==
LOC: D.CT 12-25 14:30
PROVIDERS: ATTEND Family Medicine
DX: G06.0 Intracranial abscess and granuloma (principal)